=== PATIENT | male | born 1980 | race Asian ===

== ENCOUNTER 2016-07-24 10:13 | Outpatient (CLI) | payer BC | END 2016-07-24 10:14 | disposition home or self-care (01) | DX: G47.33 Obstructive sleep apnea (adult) (pediatric) (principal) ==

== ENCOUNTER 2016-10-23 09:48 | Outpatient (CLI) | payer BC | END 2016-10-23 09:49 | disposition home or self-care (01) | DX: G47.33 Obstructive sleep apnea (adult) (pediatric) (principal) ==

== ENCOUNTER 2016-12-25 10:12 | Outpatient (CLI) | payer BC | END 2016-12-25 10:13 | disposition home or self-care (01) | LOC: SC 10:12 | PROVIDERS: ATTEND Nurse Practitioner Family | DX: G47.33 Obstructive sleep apnea (adult) (pediatric) (principal) | CPT/HCPCS: 99212; 99214 ==

== ENCOUNTER 2017-07-10 08:42 | Outpatient (CLI) | payer BC | END 2017-07-10 08:43 | disposition home or self-care (01) | LOC: SC 08:42 | PROVIDERS: ATTEND Nurse Practitioner Family | DX: G47.33 Obstructive sleep apnea (adult) (pediatric) (principal) | CPT/HCPCS: 99212; 99214 ==

== ENCOUNTER 2018-11-07 08:40 | Outpatient (CLI) | payer BC | END 2018-11-07 08:41 | disposition home or self-care (01) | LOC: SC 08:40 | PROVIDERS: ATTEND Nurse Practitioner Family | DX: G47.33 Obstructive sleep apnea (adult) (pediatric) (principal) | CPT/HCPCS: 99212; 99214 ==

== ENCOUNTER 2020-06-07 08:18 | Outpatient (CLI) | payer BC ==
--- NOTE | 2020-06-07 08:51 | SLEEP CARE CONSULTATION ---
Information from patient questionnaire entered by Clarita Dixon. I have reviewed and concur with the information entered by Clarita Dixon. This document represents the service I personally performed and the decisions made by , Hollie Beckman ARNP. History of Present Illness Service Date and Time: 06/07/2020817 Previous diagnosis: Severe, Obstructive Sleep Apnea-Hypopnea Syndrome AHI: 60 (in 2016)(8.7 in 2013) Reason for follow up: annual (last seen 10/2018) Equipment type: CPAP Equipment obtained from: [employer] (stopped dispensing supplies) Mask style: Nasal Mask brand: Respironics (Dreamwear) Backup mask available: No (will keep old mask when replaced) Last cushion change: several months Prior sleep studies: Yes Year and Where: 2013 and 2015 - [facility] sleep Type of Sleep Study: Polysomnography HPI additional information: MOUNA SONG was diagnosed to have severe, AHI 60, obstructive sleep apnea- hypopnea syndrome and returned today for CPAP therapy annual follow-up. CPAP Compliance Data - Data Reviewed with Patient Average duration of nightly device use: 6 hr 6 min Compliance rate %: 70 (last 30)(60 for 180 days) Current pressure setting (cmH2O): 9 Humidity settin Heated hose settin Average residual AHI: 0.6 Central apnea: 0.1 Obstructive apnea: 0.3 Average large leak: 0 Subjective Missed days of use due to: reports: other (working 3rd shift which is affecting sleep time) Patient concerns: reports: dry mouth, nose, throat, other (snore while using device). denies: aerophagia, mask discomfort, air blowing in eyes, mask leak noise, condensation in mask/hose, nasal congestion, epistaxis Observed to snore while using device: Yes Current pressure setting perceived as: too low On therapy, patient: reports: sleeping better, awakening more refreshed, being more awake and alert during the day, more rested overall. denies: drowsiness while driving Initial [place] Sleepiness Scale score: 7 (in 2013) Current [place] Sleepiness Scale score: 9 Allergies and Home Medications Drug allergies reviewed: Yes (amoxicillin) Home medication list reviewed: Yes (no changes) Review of Systems Review of systems same as previous: Yes (no changes) Physical Exam Heart Rate: 67 O2 Saturation: 98 Height: 5 ft 11 in Weight: 247 lb Body Mass Index: 34.4 BMI Classification: Obese Impression and Plan 1. Obstructive Sleep Apnea-Hypopnea Syndrome, severe, with fair treatment compliance and good apnea control. On CPAP therapy, the patient has better sleep quality and is more rested overall. To resolve snore, the CPAP pressure will be changed to 9-11 cmH20. Patient advised to contact this office if pressure change uncomfortable or if pressure change does not resolve snore. He has had daily oral dryness, but he does not use the humidity on his machine. Oral dryness can be reduced by adjusting humidity setting higher or heated hose lower or by adjusting both settings. Verbal instructions given on how to change humidity and heated hose settings with rationale explaining why to change. Patient advised that chronic oral dryness can affect dental health and advised to follow up with dentist. In addition, there are oral dryness products that can be used to reduce dryness such as Biotene products, Dry mouth rinse and Xylomelts. Patient to discuss best option with dentist. Patient has been using [facility] for his supplies and they have since stopped dispensing supplies. He would also like to try a full face mask to be used all the time. Patient was informed that another DME can be used and a prescription for a mask refitting will be written. I will have my social media coordinator inform of DME options. A [facility]O prescription will then be made. Patient advised to contact this office if further supply problems. Patient's apnea severity and rationale for treatment to reduce apnea, improve sleep quality and reduce cardiovascular and cerebrovascular events was reviewed. I also reviewed the benefit of consistent device use of CPAP for his arrhythmia. Patient states his arrhythmia was just when he was younger. * Change auto CPAP pressure to 9-11 cmH2O to reduce snoring * Notify me if snoring with mask or feeling that the pressure is too much or too little * Transfer DME * Mask refitting for full face mask * Call this office if any problems using CPAP * Return for follow up in 1-2, or sooner if concerns arise Counseling Topics: Spare mask Visit Type: In Office Time Spent with Patient (minutes): 25 Provider Statement: I spent 100% of the Face to Face Visit with the patient with greater than 50% spent counseling the patient and coordination of care.
== END 2020-06-07 08:19 | disposition home or self-care (01) ==
LOC: SC 08:18
PROVIDERS: ATTEND Nurse Practitioner Family
DX: G47.33 Obstructive sleep apnea (adult) (pediatric) (principal); E66.9 Obesity, unspecified; Z68.34 Body mass index [BMI] 34.0-34.9, adult
CPT/HCPCS: 99212; 99213

== ENCOUNTER 2023-08-28 09:25 | Outpatient (CLI) | payer BC ==
--- NOTE | 2023-08-28 09:16 | Sleep Patient Instructions ---
Sleep Center Visit Summary - Patient Visit Information Reason for Visit: Initial consultation - Patient Instructions Instructions Attached: Sleep Study Home Monitor Additional Instructions: You will be completing a sleep study, either an in-lab polysomnography (PSG) or home sleep study (HST). You will follow-up in the sleep care office after the sleep study is completed to hear the results and talk about therapy, if needed. You will be called by our office staff to schedule this appointment, but you may contact us with any questions. - Clinic Information Contact: [facility] [address] [place] [address] [email or web address] T: [phone]
--- NOTE | 2023-08-28 09:21 | SLEEP CARE CONSULTATION ---
Information from patient questionnaire entered by Brianna Gonzalez. I have reviewed and concur with the information entered by Brianna Gonzalez. This document represents the service I personally performed and the decisions made by me, Hollie Beckman ARNP. History of Present Illness Service Date and Time: 08/28/2023 0840 Reason for Visit: New patient, Previously diagnosed sleep apnea, Re-establish care Chief Complaint: reports: Snoring, Other (UPDATE SUPPLIES) Date of Onset: 2007 Usual bedtime: 930AM Time it takes to fall asleep: 30 MIN OR LESS Snores at night: Yes Observed to quit breathing while asleep: Yes Sleeps alone due to snoring: Yes Number of times waking at night: 1-2 Reasons for waking at night: reports: Bathroom, Other (UNKNOWN KIDS / ) Toss, Turn, or Twitch while sleeping: No Recalls having dreams: No Usually gets out of bed at: 3PM, sometimes 6 PM Feels refreshed in the morning: No Morning headache: No Sleepy or fatigued during the day: Yes Ever fallen asleep while driving: No Takes day naps: No (lately 30 mins during break at work) Dreams during day naps: No Prior sleep studies: Yes Year and Where: 2013 and 2015 - [facility] sleep Type of Sleep Study: Polysomnography Additional HPI information: MOUNA SONG was previously diagnosed to have very severe, AHI 60, obstructive sleep apnea-hypopnea syndrome as seen in PSG dated 04/30/2016 here at [facility] and comes in today to re-establish care for CPAP therapy. - Parasomnia Symptoms Ever been unable to move upon waking from sleep: Yes Walks in sleep: No Talks in sleep: No Ever acted out dreams in sleep: No Ever felt weak in the knees when startled or emotional: No Bothered by creepy, crawly, restless sensations in legs: No Problems with memory or concentration: Yes CPAP Compliance Data - Data Reviewed with Patient Average duration of nightly device use: 3 hours 39 minutes Compliance rate %: 8.2 (07/26/21-03/25/2022; 45/243 days used) Current pressure setting (cmH2O): 10-12 Average residual AHI: 0.7 Average large leak: 3 mins 48 secs Compliance data discussion: He has a Dreamstation that is on the recall. The CPAP was last updated 06/08/2016. He has not been using it consistently since he heard about the recall. He used to get his supplies from [place] supplier in [facility]. He was using a nasal cushion, Dreamwear medium cushion. Subjective Initial [place] Sleepiness Scale score: 7 (in 2013) Current [place] Sleepiness Scale score: 9 (07/22/23) Past Medical History Past Medical History: reports: Anxiety Social History The patient's occupation is a [employer]. Patient is and lives in [place]. Have you smoked in the past 12 months: No Cigarettes per day (20/pack): 10 Years of smokin Quit date: 2011 Smoking Pack Years: 6.0 Alcohol use: Yes Alcohol amount and frequency: 1-2 X A YR Caffeine use: Yes Caffeine amount and frequency: 2-3 CUPS QD Family History Family history of sleep disordered breathing: No Allergies and Home Medications Known drug allergies: Yes ( LISTED ) Drug allergies reviewed: Yes Home medication list reviewed: Yes (as listed) Allergy and home medication list: Allergies amoxicillin Allergy (Verified 08/24/23 11:47) Medications: OTC Xlear, nasal spray for post nasal drip MVT Review of Systems Weight loss over past 5 years: 100 Cardiovascular: reports: irregular heart rate or pulse. denies: high blood pressure Gastrointestinal: denies: heartburn Neurological: denies: headaches Psychiatric: reports: anxiety Ear/Nose/Throat: reports: wisdom teeth removed (2 removed only). denies: tonsillectomy Endocrine: denies: thyroid disease Physical Exam Vital signs obtained and entered by: HOLLIE BAEZ Blood Pressure: 125/80 Cuff size: regular (right arm) Heart Rate: 72 O2 Saturation: 99 Height: 5 ft 11 in Weight: 215 lb Body Mass Index: 29.9 BMI Classification: Overweight Neck circumference: 16.5 (inches) Mouth and throat: narrow oropharynx Soft palate: long Hard palate: normal Uvula: normal Uvula visualization: 0% Mallampati Class IV Tongue: enlarged in size with teeth bonilla on lateral edges Tonsils: 2+ Neck: normal w/o lymphadenopathy or thyromegaly Heart: regular rate and rhythm Lungs: clear bilaterally Impression and Plan 1. Obstructive Sleep Apnea-Hypopnea Syndrome, very severe. When on CPAP therapy, the patient has had better sleep quality and was more rested overall. He has not been using his CPAP due to it being on the recall and his continued snoring when using the CPAP. He thought it was not working and felt he needed more pressure. He has not been using CPAP consistently for few years. He has also had significant weight loss of 100 pounds in last 5 years. I recommend proceeding to polysomnography to re-confirm the diagnosis and to assess severity. I obtained agreement to proceed. The pathophysiology of obstructive sleep apnea-hypopnea syndrome was discussed with the patient and health risks of cardiovascular and cerebrovascular disease if not treated. Patient's apnea severity and rationale for treatment to reduce apnea, improve sleep quality and reduce cardiovascular and cerebrovascular events was reviewed. I also reviewed the benefit of consistent device use of CPAP for anxiety. 2. Overweight, unspecified. Currently patients BMI is 29.9. Obesity increases the risk of apnea, CPAP pressure requirements and overall health risks especially cardiovascular and diabetes. Thus patient is advised to continue to try to lose weight. * Schedule polysomnography +- manual CPAP titration study and return in 1-2 weeks after the study to discuss result and initiate therapy. * Avoid long distance driving or driving when feeling sleepy. * Avoid alcohol, sedative and muscle relaxant around bedtime. * Continue to try to lose weight. * Review instructions provided by trained office staff on how to prepare for the sleep study. * Return for follow-up after sleep study completed. Counseling Topics: Weight loss health impact Follow up with Sleep Care in: other (after sleep study) Plan: HST Visit Type: In Office Time Spent with Patient (minutes): 34 Provider Statement: I spent 100% of the Face to Face Visit with the patient with greater than 50% spent counseling the patient and coordination of care.
[2023-08-28 09:38] VITALS: BP 125/80; O2SAT 99
== END 2023-08-28 09:26 | disposition home or self-care (01) ==
LOC: SC 09:25
PROVIDERS: ATTEND Nurse Practitioner Family
DX: G47.33 Obstructive sleep apnea (adult) (pediatric) (principal); E66.3 Overweight; Z68.29 Body mass index [BMI] 29.0-29.9, adult
CPT/HCPCS: 99203; 99212

== ENCOUNTER 2023-10-03 08:20 | Outpatient (CLI) | payer BC | END 2023-10-03 08:21 | disposition home or self-care (01) | LOC: SC 08:20 | PROVIDERS: ATTEND Nurse Practitioner Family | DX: G47.33 Obstructive sleep apnea (adult) (pediatric) (principal); R09.02 Hypoxemia | CPT/HCPCS: 95806 ==

== ENCOUNTER 2023-10-15 11:23 | Outpatient (CLI) | payer BC ==
--- NOTE | 2023-10-15 21:35 | SLEEP CARE CONSULTATION ---
Information from patient questionnaire entered by Adin Gonzalez. I have reviewed and concur with the information entered by Adin Gonzalez. This document represents the service I personally performed and the decisions made by me, Yunior Henderson MD, [facility]. History of Present Illness Service Date and Time: 10/15/2023 1123 Initial [place] Sleepiness Scale score: 7 (in 2013) Current [place] Sleepiness Scale score: 10 (10/15/23) Additional HPI information: Mr. Lees returned for follow up of the sleep study he had on 10/03/23. The test showed mild obstructive sleep apnea-hypopnea, with an AHI of 14.7/hr and dax SaO2 of 86%. During the study, the patient had 17 apneas (17 obstructive, 0 central, 0 mixed) and 106 hypopneas. The longest episode lasted 91.0 seconds. The respiratory events occurred almost exclusively during supine sleep (supine AHI was 22.7 and non-supine, 2.42). Hypoxemia was mild, with the lowest oxygen saturation of 86 % and 7.6 minutes with SaO2 under 90%. Baseline oxygen saturation was normal (Average oxygen saturation was 92%). The patient was informed of these findings. I explained to him that he still has obstructive sleep apnea-hypopnea but it improved from very severe to mild and positional. The patient said he lost over 100 lbs. Sleep Study - Results Type of Sleep Study: Home sleep study (COMPLETED 10/03/23) Prior sleep studies: Yes Year and Where: 2013 and 2015 - [facility] sleep Allergies and Home Medications Drug allergies reviewed: Yes Home medication list reviewed: Yes Allergy and home medication list: Allergies amoxicillin Allergy (Verified 10/15/23 08:13) Review of Systems Review of systems same as previous: Yes (NO CHANGE) Physical Exam Vital signs obtained and entered by: ADIN Marie MA Blood Pressure: 133/89 (RIGHT ARM) Cuff size: regular Heart Rate: 90 O2 Saturation: 97 Height: 5 ft 11 in Weight: 233 lb 3.2 oz Body Mass Index: 32.5 BMI Classification: Obese Impression and Plan IMPRESSION: 1. Obstructive Sleep Apnea-Hypopnea Syndrome, mild, and positional. He used CPAP for many years and quit when his machine was recalled. He wore a nasal mask. Because he still snores loudly and has some daytime sleepiness, he would like to use the CPAP again. PLAN: 1. Prescription made for an autoCPAP, heated humidifier, and related supplies through [employer]. 2. Attempt to lose weight and avoid alcohol consumption near bedtime. 3. Return for follow up after one month of using the CPAP. Counseling Topics: Weight loss health impact, Weight control Prescriptions: Auto CPAP Follow up with Sleep Care in: 1-2 months Follow up recommended for: Weight management Visit Type: In Office Time Spent with Patient (minutes): 15 Provider Statement: I spent 100% of the Face to Face Visit with the patient with greater than 50% spent counseling the patient and coordination of care.
[2023-10-15 21:40] VITALS: BP 133/89; O2SAT 97
== END 2023-10-15 11:24 | disposition home or self-care (01) ==
LOC: SC 11:23
PROVIDERS: ATTEND Internal Medicine Pulmonary Disease
DX: G47.33 Obstructive sleep apnea (adult) (pediatric) (principal); E66.9 Obesity, unspecified; Z68.32 Body mass index [BMI] 32.0-32.9, adult
CPT/HCPCS: 99212

== ENCOUNTER 2024-01-01 08:41 | Outpatient (CLI) | payer BC ==
--- NOTE | 2024-01-01 09:03 | Sleep Patient Instructions ---
Sleep Center Visit Summary - Patient Visit Information Reason for Visit: First compliance follow-up - Patient Instructions Additional Instructions: You were here for follow up of CPAP therapy. You will be continued on CPAP therapy with pressure at 6-8 cmH2O. Please let us know if the pressure change is uncomfortable and we can make further adjustments of the pressure. You should follow up with sleep care in 1-2 months. You may contact us sooner for any questions or concerns. - Clinic Information Contact: [facility] [address] [place] [email or web address] T: [phone]
--- NOTE | 2024-01-01 09:05 | SLEEP CARE CONSULTATION ---
Information from patient questionnaire entered by Adin Gonzalez. I have reviewed and concur with the information entered by Adin Gonzalez. This document represents the service I personally performed and the decisions made by me, Hollie Beckman ARNP. History of Present Illness Service Date and Time: 01/01/2024 0841 Previous diagnosis: Mild, Obstructive Sleep Apnea-Hypopnea Syndrome AHI: 14.7 (in 2023)(60 in 2015)(8.7 in 2013) Reason for follow up: first compliance Equipment type: CPAP (RESMED AIRSENSE 11 S/U 11/02/23) Equipment obtained from: Other ([facility]; getting supplies) Mask style: Nasal (Eson II) Backup mask available: No Last cushion change: 1 week Prior sleep studies: Yes Year and Where: 2013 and 2015 - [facility] Type of Sleep Study: Home sleep study (COMPLETED 10/03/23) HPI additional information: MOUNA SONG was diagnosed to have mild, AHI 14.7, obstructive sleep apnea- hypopnea syndrome and returned today for CPAP therapy first compliance follow- up. Sleep Study - Results Type of Sleep Study: Home sleep study (COMPLETED 10/03/23) Prior sleep studies: Yes Year and Where: 2013 and 2015 - [facility] CPAP Compliance Data - Data Reviewed with Patient Average duration of nightly device use: 5 HRS 15 MINS Compliance rate %: 70 (11/05/23-12/04/23; days used) Current pressure setting (cmH2O): 5-15 (median 5.1, avg 6.7, max 7.5) Average residual AHI: 0.7 Central apnea: 0.1 Obstructive apnea: 0.2 Hypopnea: 0.3 Average large leak: 0.6 L/min Subjective Missed days of use due to: reports: family emergency (baby not sleeping) Patient concerns: denies: aerophagia, mask discomfort, air blowing in eyes, mask leak noise, condensation in mask/hose, nasal congestion, dry mouth, nose, throat, epistaxis Observed to snore while using device: No Current pressure setting perceived as: too low On therapy, patient: reports: sleeping better, awakening more refreshed, being more awake and alert during the day, more rested overall. denies: drowsiness while driving Initial [place] Sleepiness Scale score: 7 (in 2013) Current [place] Sleepiness Scale score: 8 (01/01/24) Allergies and Home Medications Known drug allergies: Yes (as listed) Drug allergies reviewed: Yes Home medication list reviewed: Yes (no changes) Allergy and home medication list: Allergies amoxicillin Allergy (Verified 12/28/23 13:09) Review of Systems Review of systems same as previous: Yes (NO CHANGE) Physical Exam Vital signs obtained and entered by: ADIN Marie MA Blood Pressure: 118/80 Cuff size: long Heart Rate: 81 O2 Saturation: 97 Height: 5 ft 11 in Weight: 235 lb 12.8 oz Body Mass Index: 32.8 BMI Classification: Obese Impression and Plan 1. Obstructive Sleep Apnea-Hypopnea Syndrome, mild, with good treatment compliance and good apnea control. On CPAP therapy, the patient has better sleep quality and is more rested overall. He says when he first puts the mask on the pressure feels too low. He feels like he is struggling to get enough air. I will turn the ramp starting pressure off and adjust his pressure today. The patients pressure will be changed to autoCPAP 6-8 cmH20 to reflect pressure being used. Patient advised to contact me if pressure change is uncomfortable so that it can be adjusted. Goals for apnea control discussed. Patient's apnea severity and rationale for treatment to reduce apnea, improve sleep quality and reduce cardiovascular and cerebrovascular events was reviewed. I also reviewed the benefit of consistent device use of CPAP for anxiety. 2. Obesity, unspecified. Currently patients BMI is 32.8. Obesity increases the risk of apnea, CPAP pressure requirements and overall health risks especially cardiovascular and diabetes. Thus patient is advised to lose weight. * Change auto CPAP pressure to 6-8 cmH2O * Notify me if snoring with mask or feeling that the pressure is too much or too little * Attempt to lose weight * Call this office if any problems using CPAP * Return for follow up in 1-2 months, or sooner if concerns arise Adjust device pressure to (cmH2O): 6-8 Counseling Topics: Spare mask, Weight loss health impact Follow up with Sleep Care in: 1-2 months Visit Type: In Office Time Spent with Patient (minutes): 20 Provider Statement: I spent 100% of the Face to Face Visit with the patient with greater than 50% spent counseling the patient and coordination of care.
[2024-01-01 09:11] VITALS: BP 118/80; O2SAT 97
== END 2024-01-01 08:42 | disposition home or self-care (01) ==
LOC: SC 08:41
PROVIDERS: ATTEND Nurse Practitioner Family
DX: G47.33 Obstructive sleep apnea (adult) (pediatric) (principal); E66.9 Obesity, unspecified; Z68.32 Body mass index [BMI] 32.0-32.9, adult
CPT/HCPCS: 99212; 99213

== ENCOUNTER 2024-02-15 08:21 | Outpatient (CLI) | payer BC ==
--- NOTE | 2024-02-15 08:48 | Sleep Patient Instructions ---
Sleep Center Visit Summary - Patient Visit Information Reason for Visit: 6-week follow-up for PAP therapy - Patient Instructions Additional Instructions: You were here for follow up of CPAP therapy. You will be continued on CPAP therapy with pressure at 7-8 cmH2O. You should follow up with sleep care in 6 months. You may contact us sooner for any questions or concerns. - Clinic Information Contact: [facility] [address] [place] [id number] [email or web address] T: [phone]
--- NOTE | 2024-02-15 08:52 | SLEEP CARE CONSULTATION ---
Information from patient questionnaire entered by Monica Paulino. I have reviewed and concur with the information entered by Monica Paulino. This document represents the service I personally performed and the decisions made by , Hollie Beckman ARNP. History of Present Illness Service Date and Time: 02/15/2024 08 Previous diagnosis: Mild, Obstructive Sleep Apnea-Hypopnea Syndrome AHI: 14.7 Equipment type: CPAP (Airsense 11, s/u 10/2023) Equipment obtained from: Other ([facility]) Mask style: Nasal Backup mask available: No Last cushion change: 2-3 days ago Prior sleep [facility]: Yes [facility] Type of Sleep Study: Home sleep study (COMPLETED 10/03/23) HPI additional information: MOUNA SONG was diagnosed to have mild, AHI 14.7, obstructive sleep apnea- hypopnea syndrome and returned today for CPAP therapy six week after pressure change follow-up. Sleep Study - Results Type of Sleep Study: Home sleep study (COMPLETED 10/03/23) [facility]: Yes [facility] Compliance Data - Data Reviewed with Patient Average duration of nightly device use: 4 hours 17 minutes Compliance rate %: 50 (/30 days used) Current pressure setting (cmH2O): 6-8 Average residual AHI: 0.9 Central apnea: 0 Obstructive apnea: 0.5 Hypopnea: 0.3 Average large leak: 9.3 L/min Subjective Missed days of use due to: reports: family emergency Patient concerns: denies: aerophagia, mask discomfort, air blowing in eyes, mask leak noise, condensation in mask/hose, nasal congestion, dry mouth, nose, throat, epistaxis Observed to snore while using device: No Current pressure setting perceived as: comfortable (too low at the start) On therapy, patient: reports: sleeping better, awakening more refreshed, being more awake and alert during the day, more rested overall. denies: drowsiness while driving Initial [place] Sleepiness Scale score: 7 (in 2013) Current [place] Sleepiness Scale score: 9 Allergies and Home Medications Known drug allergies: Yes (as listed) Drug allergies reviewed: Yes Home medication list reviewed: Yes (no changes) Allergy and home medication list: Allergies amoxicillin Allergy (Verified 01/01/24 08:47) Review of Systems Review of systems same as previous: Yes (no changes) Physical Exam Vital signs obtained and entered by: Hollie Avelar NP Blood Pressure: 144/90 Cuff size: long (right arm) Heart Rate: 85 O2 Saturation: 97 Height: 5 ft 11 in Weight: 239 lb 12.8 oz Body Mass Index: 33.4 BMI Classification: Obese Impression and Plan 1. Obstructive Sleep Apnea-Hypopnea Syndrome, mild, with fair treatment compliance and good apnea control. On CPAP therapy, the patient has better sleep quality and is more rested overall. He has been increasing his compliance in the last week due to schedule changes. He feels like he could use a little more air when he first puts his mask on, some air hunger. The patients pressure will be changed to autoCPAP 7-8 cmH20 for patient comfort. Patient advised to contact me if pressure change is uncomfortable so that it can be adjusted. Goals for apnea control discussed. Patient's apnea severity and rationale for treatment to reduce apnea, improve sleep quality and reduce cardiovascular and cerebrovascular events was reviewed. I also reviewed the benefit of consistent device use of CPAP for anxiety. 2. Obesity, unspecified. Currently patients BMI is 33.4. Obesity increases the risk of apnea, CPAP pressure requirements and overall health risks especially cardiovascular and diabetes. Thus patient is advised to lose weight. * Change auto CPAP pressure at 7-8 cmH2O * Notify me if snoring with mask or feeling that the pressure is too much or too little * Attempt to lose weight * Call this office if any problems using CPAP * Return for follow up in 6 months, or sooner if concerns arise Adjust device pressure to (cmH2O): 7-8 Counseling Topics: Spare mask, Weight loss health impact Follow up with Sleep Care in: 6 months Visit Type: In Office Time Spent with Patient (minutes): 21 Provider Statement: I spent 100% of the Face to Face Visit with the patient with greater than 50% spent counseling the patient and coordination of care.
[2024-02-15 08:58] VITALS: BP 144/90; O2SAT 97
== END 2024-02-15 08:22 | disposition home or self-care (01) ==
LOC: SC 08:21
PROVIDERS: ATTEND Nurse Practitioner Family
DX: G47.33 Obstructive sleep apnea (adult) (pediatric) (principal); E66.9 Obesity, unspecified; Z68.33 Body mass index [BMI] 33.0-33.9, adult
CPT/HCPCS: 99212; 99213